=== PATIENT | female | born 1965 | race Caucasian/White ===

== ENCOUNTER → 2017-09-04 | Outpatient (CLI) | payer BC ==
--- NOTE | 2017-09-09 07:14 | MM ---
Reason for exam: screening (asymptomatic). Last mammogram was performed 1 year and 1 month ago. History: Patient is postmenopausal. Family history of breast cancer in maternal grandmother. Took hormonal contraceptives for 20 years beginning at age 23. Taking estrogen for 2 years 7 months. Physical Findings: A clinical breast exam by your physician is recommended on an annual basis and results should be correlated with mammographic findings. MG Screening Mammo w CAD Bilateral CC and MLO view(s) were taken. Prior study comparison: August 07, 2016, bilateral MG screening mammo w CAD. July 19, 2015, bilateral MG screening mammo w CAD. The breast tissue is heterogeneously dense. This may lower the sensitivity of mammography. No significant changes when compared with prior studies. ASSESSMENT: Benign, BI-RAD 2 RECOMMENDATION: Routine screening mammogram of both breasts in 1 year.
== END | disposition home or self-care (01) ==
LOC: RADMAMWWP 16:26
PROVIDERS: ATTEND Obstetrics & Gynecology
DX: Z12.31 Encounter for screening mammogram for malignant neoplasm of breast (principal)

== ENCOUNTER → 2018-09-17 | Outpatient (CLI) | payer BC ==
--- NOTE | 2018-09-18 10:13 | MM ---
Reason for exam: screening (asymptomatic). Last mammogram was performed 1 year ago. History: Patient is postmenopausal. Family history of breast cancer in maternal grandmother. Took hormonal contraceptives for 20 years beginning at age 23. Taking estrogen for 7 years. Physical Findings: A clinical breast exam by your physician is recommended on an annual basis and results should be correlated with mammographic findings. MG Screening Mammo w CAD Bilateral CC and MLO view(s) were taken. Prior study comparison: September 04, 2017, bilateral MG screening mammo w CAD. August 07, 2016, bilateral MG screening mammo w CAD. The breast tissue is heterogeneously dense. This may lower the sensitivity of mammography. There is no discrete abnormality. No significant changes when compared with prior studies. ASSESSMENT: Negative, BI-RAD 1 RECOMMENDATION: Routine screening mammogram of both breasts in 1 year.
== END | disposition home or self-care (01) ==
LOC: RADMAMWWP 16:15
PROVIDERS: ATTEND Obstetrics & Gynecology
DX: Z12.31 Encounter for screening mammogram for malignant neoplasm of breast (principal)
CPT/HCPCS: 77067

== ENCOUNTER → 2019-09-20 | Outpatient (CLI) | payer BC ==
--- NOTE | 2019-09-20 16:00 | BD ---
EXAMINATION TYPE: Axial Bone Density DATE OF EXAM: 09/20/2019 COMPARISON: NONE CLINICAL HISTORY: Z 78.0 Height: 62 Weight: 142.4 FRAX RISK QUESTIONS: Alcohol (3 or more units per day): no Family History (Parent hip fracture): yes - mother Glucocorticoids (More than 3mos): no (Ex: prednisone, prednisolone, methylprednisolone, dexamethasone, and hydrocortisone). History of Fracture in Adulthood: no Secondary Osteoporosis: 1. Type 1 Diabetes: no 2. Hyperthyroidism: no 3. Menopause before 45: no 4. Malnutrition: no 5. Chronic liver disease: no Rheumatoid Arthritis: no Current Tobacco Use: yes RISK FACTORS HISTORY OF: Family History of Osteoporosis: no Active: yes Diet low in dairy products/other sources of calcium: no Postmenopausal woman: age 43 Take estrogen and/or progesterone medications: yes How lon years MEDICATIONS: spironolactone Additional History: EXAM MEASUREMENTS: Bone mineral densitometry was performed using the [employer] System. Bone mineral density as measured about the Lumbar spine is: ----- L1-L4(G/cm2): 1.121 T Score Values are as follows: ----- L2: -0.7 ----- L3: -0.1 ----- L4: -0.6 ----- L1-L4: -0.5 Bone mineral density : baseline Bone mineral density about the R hip (g/cm2): 0.915 Bone mineral density about the L hip (g/cm2): 0.874 T Score values are as follows: -----R Neck: -0.9 -----L Neck: -1.2 -----R Total: -0.7 -----L Total: -0.8 Bone mineral density : baseline IMPRESSION: Osteopenia (T Score between -2.5 and -1). There is slightly increased risk of fracture and the patient may be considered for treatment. Re-Screen 2-5 years. NOTE: T-SCORE=SD OF THE YOUNG ADULT MEAN.
--- NOTE | 2019-09-22 10:17 | MM ---
Reason for exam: screening (asymptomatic). Last mammogram was performed 1 year ago. History: Patient is postmenopausal. Family history of breast cancer in maternal grandmother. Took hormonal contraceptives for 20 years beginning at age 23. Taking estrogen for 7 years. Physical Findings: A clinical breast exam by your physician is recommended on an annual basis and results should be correlated with mammographic findings. MG Screening Mammo w CAD Bilateral CC and MLO view(s) were taken. Prior study comparison: September 17, 2018, bilateral MG screening mammo w CAD. September 04, 2017, bilateral MG screening mammo w CAD. The breast tissue is heterogeneously dense. This may lower the sensitivity of mammography. No significant changes when compared with prior studies. ASSESSMENT: Benign, BI-RAD 2 RECOMMENDATION: Routine screening mammogram of both breasts in 1 year.
== END | disposition home or self-care (01) ==
LOC: RADMAMWWP 15:20
PROVIDERS: ATTEND Obstetrics & Gynecology
DX: Z12.31 Encounter for screening mammogram for malignant neoplasm of breast (principal); Z13.820 Encounter for screening for osteoporosis; M85.80 Other specified disorders of bone density and structure, unspecified site; Z78.0 Asymptomatic menopausal state
CPT/HCPCS: 77067; 77080

== ENCOUNTER 2020-02-24 09:18 | Inpatient (IN) | payer BC ==
[2020-02-24] MEDS ORDERED: HYDROmorphone 0.5 MG/0.5 ML SYRINGE IVP STA ×2 (09:41→11:45)
[2020-02-24] MEDS ORDERED: SODIUM CHLORIDE 0.9% 1,000 ML IV STA (09:41)
[2020-02-24] MEDS ORDERED: ONDANSETRON 4 MG/2 ML VIAL IVP STA (09:41)
--- NOTE | 2020-02-24 09:48 | ED ---
General Adult HPI - General Source: patient, RN notes reviewed Mode of arrival: wheelchair Limitations: no limitations <Hunter Galvan - Last Filed: 02/24/20 11:43> <Michael Cai - Last Filed: 02/24/20 11:51> - General Chief complaint: Abdominal Pain Stated complaint: abd pain Time Seen by Provider: 02/24/20 09:25 - History of Present Illness Initial comments: 54-year-old female with a past medical history of hysterectomy presents to the emergency department for abdominal pain. Patient states this started midday 2 days ago. States it is a sharp pain. Patient states it is across her lower abdomen but a worse in the right lower quadrant. Patient admits to nausea but denies vomiting. Patient did have one episodes of diarrhea but it was because she took a laxative given she thought she was constipated and that was what was causing this pain. Patient denies fevers or chills.Patient has no other complaints at this time including shortness of breath, chest pain, vomiting, headache, or visual changes. (Hunter Galvan) - Related Data Home Medications Medication Instructions Recorded Confirmed Estradiol 0.5 mg PO DAILY 02/24/20 02/24/20 Multivitamins, Thera [Multivitamin 1 tab PO DAILY 02/24/20 02/24/20 (formulary)] Spironolactone 25 mg PO DAILY 02/24/20 02/24/20 Allergies Allergy/AdvReac Type Severity Reaction Status Date / Time No Known Allergies Allergy Verified 02/24/20 10:44 Review of Systems ROS Other: All systems not noted in ROS Statement are negative. <Hunter Galvan - Last Filed: 02/24/20 11:43> ROS Other: All systems not noted in ROS Statement are negative. <Michael Cai - Last Filed: 02/24/20 11:51> ROS Statement: Those systems with pertinent positive or pertinent negative responses have been documented in the HPI. Past Medical History Past Medical History: No Reported History History of Any Multi-Drug Resistant Organisms: None Reported Past Surgical History: Hysterectomy Past Psychological History: No Psychological Hx Reported Smoking Status: Current every day smoker Past Alcohol Use History: Occasional Past Drug Use History: None Reported <Hunter Galvan - Last Filed: 02/24/20 11:43> General Exam Limitations: no limitations General appearance: alert, in no apparent distress Head exam: Present: atraumatic, normocephalic, normal inspection Eye exam: Present: normal appearance, PERRL, EOMI. Absent: scleral icterus, conjunctival injection, periorbital swelling ENT exam: Present: normal exam, mucous membranes moist Neck exam: Present: normal inspection, full ROM. Absent: tenderness, meningismus, lymphadenopathy Respiratory exam: Present: normal lung sounds bilaterally. Absent: respiratory distress, wheezes, rales, rhonchi, stridor Cardiovascular Exam: Present: regular rate, normal rhythm, normal heart sounds. Absent: systolic murmur, diastolic murmur, rubs, gallop, clicks GI/Abdominal exam: Present: soft, distended (Slightly distended abdomen.), tenderness (Tenderness throughout the lower abdomen worse in the right lower quadrant. Nothing no tenderness.), normal bowel sounds. Absent: guarding, rebound, rigid Neurological exam: Present: alert <Hunter Galvan - Last Filed: 02/24/20 11:43> Course Vital Signs 02/24/20 02/24/20 02/24/20 09:19 09:43 11:23 Temperature 97.5 F L 98.7 F Pulse Rate 94 91 88 Respiratory 18 18 17 Rate Blood Pressure 122/77 126/83 126/76 O2 Sat by Pulse 100 100 99 Oximetry Medical Decision Making - Lab Data Result diagrams: 02/24/20 09:53 02/24/20 09:53 <Hunter Galvan P - Last Filed: 02/24/20 11:43> - Lab Data Result diagrams: 02/24/20 09:53 02/24/20 09:53 <Michael Cai - Last Filed: 02/24/20 11:51> - Medical Decision Making Vitals are stable. Patient is afebrile. CBC does show mild cytosis of 13.7 with a left shift. CMP shows mild hyponatremia. Patient given normal saline. Urinalysis pending. CT abdomen and pelvis with contrast shows moderate to severe inflammation with fat stranding in the right lower quadrant. Appendix is thickened and fluid-filled, supple of perforated acute appendicitis is a consideration. However given the appearance of terminal ileitis cystitis and additional short segment of colitis inflammatory enterocolitis with subtle perforation is also in the differential. Unable to exclude a pocket of free air located outside the bowel near the region of the base of the appendix, no other free air seen or abscess. Patient was started on Zosyn and Dr. Park was consulted. (Hunter Galvan) 54-year-old days of right lower quadrant abdominal pain, anorexia. She has focal tenderness on exam with mild distention. Vital signs are stable. She has leukocytosis, CT showing appendicitis with suspected perforation and intra- abdominal free air. I did discuss case with general surgery Dr. Park, patient will be kept nothing by mouth, IV antibiotics initiated in the emergency department, likely OR today. (Michael Cai) - Lab Data Lab Results 02/24/20 02/24/20 02/24/20 Range/Units 09:53 09:53 09:53 WBC 13.7 H (3.8-10.6) k/uL RBC 4.26 (3.80-5.40) m/uL Hgb 14.1 (11.4-16.0) gm/dL Hct 40.5 (34.0-46.0) % MCV 95.2 (80.0-100.0) fL MCH 33.2 (25.0-35.0) pg MCHC 34.9 (31.0-37.0) g/dL RDW 12.2 (11.5-15.5) % Plt Count 304 (150-450) k/uL Neutrophils % 87 % Lymphocytes % 6 % Monocytes % 6 % Eosinophils % 1 % Basophils % 0 % Neutrophils # 11.9 H (1.3-7.7) k/uL Lymphocytes # 0.8 L (1.0-4.8) k/uL Monocytes # 0.8 (0-1.0) k/uL Eosinophils # 0.1 (0-0.7) k/uL Basophils # 0.0 (0-0.2) k/uL Sodium 130 L (137-145) mmol/L Potassium 4.0 (3.5-5.1) mmol/L Chloride 98 (98-107) mmol/L Carbon Dioxide 24 (22-30) mmol/L Anion Gap 8 mmol/L BUN 11 (7-17) mg/dL Creatinine 0.59 (0.52-1.04) mg/dL Est GFR (CKD-EPI)AfAm >90 (>60 ml/min/1.73 sqM) Est GFR (CKD-EPI)NonAf >90 (>60 ml/min/1.73 sqM) Glucose 120 H (74-99) mg/dL Plasma Lactic Acid Chip 1.2 (0.7-2.0) mmol/L Calcium 9.0 (8.4-10.2) mg/dL Total Bilirubin 0.9 (0.2-1.3) mg/dL AST 20 (14-36) U/L ALT 14 (4-34) U/L Alkaline Phosphatase 86 (38-126) U/L Total Protein 7.4 (6.3-8.2) g/dL Albumin 4.1 (3.5-5.0) g/dL Amylase 46 (30-110) U/L Lipase 68 (23-300) U/L Critical Care Time Critical Care Time: Yes Total Critical Care Time: 35 <Michael Cai - Last Filed: 02/24/20 11:51> Disposition Is patient prescribed a controlled substance at d/c from ED?: No Time of Disposition: 11:44 <Hunter Galvan P - Last Filed: 02/24/20 11:43> <Michael Cai - Last Filed: 02/24/20 11:51> Clinical Impression: Appendicitis, Leukocytosis, Abdominal pain, Hyponatremia, Perforated appendicitis Disposition: ADMITTED IP TO THIS HOSP Condition: Fair Referrals: None,Stated [Primary Care Provider] - 1-2 days
[2020-02-24 10:08] LABS: Basophils % (A) 0 %; Eosinophils # (A) 0.1 k/uL (0-0.7); Eosinophils % (A) 1 %; HCT 40.5 % (34.0-46.0); HGB 14.1 gm/dL (11.4-16.0); Lymphocytes # (A) 0.8 k/uL (1.0-4.8); Lymphocytes % (A) 6 %; MCH 33.2 pg (25.0-35.0); MCHC 34.9 g/dL (31.0-37.0); MCV 95.2 fL (80.0-100.0); Mean Platelet Volume 6.7; Monocytes # (A) 0.8 k/uL (0-1.0); Monocytes % (A) 6 %; Neutrophils # (A) 11.9 k/uL (1.3-7.7); Neutrophils % (A) 87 %; Platelet Count 304 k/uL (150-450); RBC 4.26 m/uL (3.80-5.40); RDW 12.2 % (11.5-15.5); WBC 13.7 k/uL (3.8-10.6)
[2020-02-24 10:20] LABS: ALT 14 U/L (4-34); AST 20 U/L (14-36); African American GFR (CKD) >90 (>60 ml/min/1.73 sqM); Albumin 4.1 g/dL (3.5-5.0); Alkaline Phosphatase 86 U/L (38-126); Amylase 46 U/L (30-110); Anion Gap 8 mmol/L; Blood Urea Nitrogen 11 mg/dL (7-17); Carbon Dioxide 24 mmol/L (22-30); Chloride 98 mmol/L (98-107); Glucose 120 mg/dL (74-99); Non-African American GFR(CKD) >90 (>60 ml/min/1.73 sqM); Sodium 130 mmol/L (137-145); Total Bilirubin 0.9 mg/dL (0.2-1.3); Total Protein 7.4 g/dL (6.3-8.2)
[2020-02-24] MEDS ORDERED: KETOROLAC 30 MG/ML 1 ML VIAL IVP STA (10:59)
--- NOTE | 2020-02-24 10:59 | CT ---
EXAMINATION TYPE: CT abdomen pelvis w con DATE OF EXAM: 02/24/2020 COMPARISON: NONE HISTORY: 54-year-old female Abdominal pain, RLQ TECHNIQUE: Contiguous axial scanning of the abdomen and pelvis following administration of 100 ml Iso chin 300 IV contrast. Delayed images through the kidneys and coronal/sagittal reconstructions perform ed. CT DLP: 709.3 mGycm Automated exposure control for dose reduction was used. FINDINGS: Heart normal size without pericardial effusion. Lung bases clear without pleural effusion. Small hiatal hernia. 1.7 cm focus of arterial enhancement anterior segment 4 left lower lobe infiltrates on the delayed ki dney images suggesting flash filling hemangioma or vascular shunting. Small amount of focal fat along the anterior falciform ligament. Portal venous system is patent. No biliary ductal dilatation. 2.7 c m diverticulum of the third portion of the duodenum projecting in the pancreatic head region. Gallbladder, adrenal glands, kidneys, spleen, pancreas appear within normal limits. No dilated small bowel. Left-sided colonic diverticulosis. Wall thickening and mucosal hyperemia involving the terminal ileum, cecum, and ascending colon with m oderate severe surrounding inflammatory fat stranding. Mild to moderate free fluid tracks down along the right side of the pelvis into the cul-de-sac on both sides. Additional short segment mucosal hype remia and wall thickening involving the distal third transverse colon and possibly the rectosigmoid j unction as well, axial images 66 and 74, respectively. The appendix is thickened up to 1.2 cm with fluid distention. Possible 2.4 cm focus of free air at th e base of the appendix. No abscess formation. Prominent 9 mm right lower quadrant mesenteric lymph node likely reactive. Bladder under distended. Pelvic phlebolith. No pelvic lymphadenopathy seen. Uterus surgically absent. Suspect visualization of small bilateral ovaries. Bones: Degenerative disc disease L4-L5 and L5-S1 mild facet arthropathy. Mild degenerative change at both hips. IMPRESSION: 1. MODERATE TO SEVERE INFLAMMATION WITH FAT STRANDING IN THE RIGHT LOWER QUADRANT. [id number] F REE FLUID TRACKS DOWN INTO THE PELVIS. SURGICAL CONSULTATION RECOMMENDED. 2. THE APPENDIX IS THICKENED AND FLUID-FILLED, SEQUELA OF PERFORATED ACUTE APPENDICITIS IS A CONSI DERATION. 3. HOWEVER, GIVEN THE APPEARANCE OF A TERMINAL ILEITIS, CECITIS, AND ADDITIONAL SHORT SEGMENTS OF COL ITIS, AN INFLAMMATORY ENTEROCOLITIS WITH SUBTLE PERFORATION IS ALSO IN THE DIFFERENTIAL. 4. UNABLE TO EXCLUDE A 2.4 CM POCKET OF FREE AIR LOCATED OUTSIDE THE BOWEL NEAR THE REGION OF THE BAS E OF THE APPENDIX. NO OTHER FREE AIR SEEN. NO ABSCESS FORMATION. 5. LEFT-SIDED COLONIC DIVERTICULOSIS AND SMALL HIATAL HERNIA.
[2020-02-24] MEDS ORDERED: PIPERACILLIN-TAZOBACTAM 3.375 GM in SODIUM CHLORIDE 0.9% 100 ML IVPB STA (11:37)
[2020-02-24] MEDS ORDERED: ONDANSETRON 4 MG/2 ML VIAL IVP PRN (11:52)
[2020-02-24] MEDS ORDERED: MORPHINE SULFATE 4 MG/ML SYRINGE IV PRN (11:52)
[2020-02-24] MEDS ORDERED: NALOXONE 0.4 MG/ML 1 ML VIAL IV PRN (11:52)
[2020-02-24] MEDS ORDERED: SODIUM CHLORIDE 0.9% 500 ML 500 ML IV STA (11:54)
[2020-02-24 12:40] LABS: Appearance,Urine Clear (Clear); Bilirubin,Urine Negative (Negative); Blood,Urine Negative (Negative); Color,Urine Yellow; Glucose,Urine (UA) Negative (Negative); Ketones,Urine 4+ (Negative); Leukocyte Esterase,Urine Negative (Negative); Nitrite,Urine Negative (Negative); PH, Urine 6.5 (5.0-8.0); Protein,Urine Trace (Negative); Urobilinogen,Urine <2.0 mg/dL (<2.0)
[2020-02-24] MEDS: SODIUM CHLORIDE 0.9% 1,000 ML IV SCH ×2 (12:59→21:32)
[2020-02-24 13:23] LABS: Specific Gravity,Urine >1.050 (1.001-1.035)
[2020-02-24] MEDS: HYDROmorphone 0.5 MG/0.5 ML SYRINGE IVP PRN ×2 (13:29→21:14)
[2020-02-24] MEDS ORDERED: IV FLUID CONTINUATION 1,000 ML IV ONE (13:48)
--- NOTE | 2020-02-24 15:11 | P.GSHP ---
History of Present Illness H&P Date: 02/24/20 Chief Complaint: Abdominal pain 54-year-old female presents to the ER after 2 days of right lower quadrant abdominal pain. Pain is now more diffuse in nature. Appetite diminished. Some constipation. No vomiting. Some nausea. Denies fevers or chills. No history of similar events. Denies rectal bleeding or melena. Otherwise fairly healthy. Abdominal surgeries include hysterectomy. CAT scan performed showing marked inflammatory changes in the right lower quadrant with fluid and likely extra luminal air. Appendix appears inflamed but sodas the terminal ileum and cecum. Sigmoid colon appears relatively normal the exception of diverticulosis. White blood cell count elevated. - Review of Systems Comment: The patient denies any acute changes in vision or hearing, no dysphagia or odynophagia, no chest pain or shortness of breath, no dysuria or hematuria, no headache, no runny nose, no rectal bleeding or melena, no unexplained weight loss Past Medical History Past Medical History: GERD/Reflux Additional Past Medical History / Comment(s): Adult acne, bronchitis History of Any Multi-Drug Resistant Organisms: None Reported Past Surgical History: Hysterectomy Additional Past Surgical History / Comment(s): Colonoscopy-normal Past Anesthesia/Blood Transfusion Reactions: No Reported Reaction, Motion Sickness Smoking Status: Current every day smoker - Past Family History Father Family Medical History: Dementia, Musculoskeletal Disorder, Neurologic Disorder Additional Family Medical History / Comment(s): Parkinson's disease. Father is . Mother Family Medical History: Dementia Additional Family Medical History / Comment(s): Mother is living. Medications and Allergies Home Medications Medication Instructions Recorded Confirmed Type Estradiol 0.5 mg PO DAILY 02/24/20 02/24/20 History Multivitamins, Thera [Multivitamin 1 tab PO DAILY 02/24/20 02/24/20 History (formulary)] Spironolactone 25 mg PO DAILY 02/24/20 02/24/20 History Allergies Allergy/AdvReac Type Severity Reaction Status Date / Time No Known Allergies Allergy Verified 02/24/20 10:44 Surgical - Exam Vital Signs Temp Pulse Resp BP Pulse Ox 97.5 F L 94 18 122/77 100 02/24/20 09:19 02/24/20 09:19 02/24/20 09:19 02/24/20 09:19 02/24/20 09:19 Physical exam: General: Well-developed, well-nourished HEENT: Normocephalic, sclerae nonicteric Abdomen: Mild distention, diffuse tenderness with rebound Extremities: No edema Neuro: Alert and oriented Results - Labs 02/24/20 09:53 02/24/20 09:53 Abnormal Lab Results - Last 24 Hours (Table) 02/24/20 02/24/20 02/24/20 Range/Units 09:53 09:53 12:15 WBC 13.7 H (3.8-10.6) k/uL Neutrophils # 11.9 H (1.3-7.7) k/uL Lymphocytes # 0.8 L (1.0-4.8) k/uL Sodium 130 L (137-145) mmol/L Glucose 120 H (74-99) mg/dL Ur Specific Mize >1.050 H (1.001-1.035) Urine Protein Trace H (Negative) Urine Ketones 4+ H (Negative) Diabetes panel 02/24/20 Range/Units 09:53 Sodium 130 L (137-145) mmol/L Potassium 4.0 (3.5-5.1) mmol/L Chloride 98 (98-107) mmol/L Carbon Dioxide 24 (22-30) mmol/L BUN 11 (7-17) mg/dL Creatinine 0.59 (0.52-1.04) mg/dL Glucose 120 H (74-99) mg/dL Calcium 9.0 (8.4-10.2) mg/dL AST 20 (14-36) U/L ALT 14 (4-34) U/L Alkaline Phosphatase 86 (38-126) U/L Total Protein 7.4 (6.3-8.2) g/dL Albumin 4.1 (3.5-5.0) g/dL Calcium panel 02/24/20 Range/Units 09:53 Calcium 9.0 (8.4-10.2) mg/dL Albumin 4.1 (3.5-5.0) g/dL Pituitary panel 02/24/20 Range/Units 09:53 Sodium 130 L (137-145) mmol/L Potassium 4.0 (3.5-5.1) mmol/L Chloride 98 (98-107) mmol/L Carbon Dioxide 24 (22-30) mmol/L BUN 11 (7-17) mg/dL Creatinine 0.59 (0.52-1.04) mg/dL Glucose 120 H (74-99) mg/dL Calcium 9.0 (8.4-10.2) mg/dL Adrenal panel 02/24/20 Range/Units 09:53 Sodium 130 L (137-145) mmol/L Potassium 4.0 (3.5-5.1) mmol/L Chloride 98 (98-107) mmol/L Carbon Dioxide 24 (22-30) mmol/L BUN 11 (7-17) mg/dL Creatinine 0.59 (0.52-1.04) mg/dL Glucose 120 H (74-99) mg/dL Calcium 9.0 (8.4-10.2) mg/dL Total Bilirubin 0.9 (0.2-1.3) mg/dL AST 20 (14-36) U/L ALT 14 (4-34) U/L Alkaline Phosphatase 86 (38-126) U/L Total Protein 7.4 (6.3-8.2) g/dL Albumin 4.1 (3.5-5.0) g/dL Assessment and Plan (1) Perforated appendicitis Narrative/Plan: 54 row female with 2 day history of abdominal pain. Suspect perforated appendicitis. Will proceed with laparoscopic, possible open appendectomy at this time. Risks of bleeding, infection, conversion to an open procedure, abscess, bladder bowel and ureteral injury, possible need for bowel resection and/or ostomy, wound infection, hernia. Patient understands and wishes to proceed. Current Visit: Yes Status: Acute Code(s): K35.32 - ACUTE APPENDICITIS WITH PERF AND LOC PERITONITIS, W/O ABSCS SNOMED Code(s): 49797895
[2020-02-24] MEDS ORDERED: KETOROLAC 30 MG/ML 1 ML VIAL ONE (15:18)
[2020-02-24] MEDS ORDERED: fentaNYL (PF) 50 MCG/ML 2 ML AMP ONE (15:18)
[2020-02-24] MEDS ORDERED: MIDAZOLAM 2 MG/2 ML VIAL ONE (15:18)
[2020-02-24] MEDS ORDERED: GLYCOPYRROLATE 0.2 MG/ML 2 ML VIAL ONE (15:18)
[2020-02-24] MEDS ORDERED: ROCURONIUM BROMIDE 10 MG/ML 5 ML VIAL IV ONE (15:18)
[2020-02-24] MEDS ORDERED: SUCCINYLCHOLINE CHLORIDE 100 MG/5 ML SYR IV ONE (15:18)
[2020-02-24] MEDS ORDERED: NEOSTIGMINE 1 MG/ML 10 ML VIAL ONE (15:18)
[2020-02-24] MEDS ORDERED: PROPOFOL 10 MG/ML 20 ML VIAL IV ONE (15:18)
[2020-02-24] MEDS ORDERED: ONDANSETRON 4 MG/2 ML VIAL IVP ONE (15:20)
[2020-02-24] MEDS ORDERED: DEXAMETHASONE SOD PHOSPHATE 10 MG/ML 1 ML VIAL IV ONE (15:20)
[2020-02-24] MEDS ORDERED: BUPIVACAIN-EPI 0.25%-1:200,000 30 ML VIAL SQ ONE ×2 (15:56)
[2020-02-24] MEDS ORDERED: LACTATED RINGERS 1,000 ML IV ONE (16:42)
[2020-02-24] MEDS ORDERED: ACETAMINOPHEN TAB 325 MG TAB PO PRN (16:58)
[2020-02-24] MEDS ORDERED: HYDROmorphone 1 MG/ML 1 ML SYRINGE IVP ONE ×2 (17:03→17:08)
--- NOTE | 2020-02-24 17:08 | P.OP ---
Date of Procedure: 02/24/20 Procedure(s) Performed: PREOPERATIVE DIAGNOSIS: Acute appendicitis POSTOPERATIVE DIAGNOSIS: Ruptured gangrenous appendicitis with peritonitis generalized PROCEDURE: Laparoscopic appendectomy SURGEON: Vivian EBL: And keri ANESTHESIA: General COMPLICATIONS: None OPERATIVE PROCEDURE: The patient was brought and placed on the operating table in the supine position. The patient was placed under general anesthesia. The abdomen was prepped and draped in the usual sterile fashion. A small vertical infraumbilical incision was made. The fascia was retracted anteriorly with [place] forceps. The Veress needle was advanced into the peritoneal cavity. The saline drop test was normal. Insufflation took place to 15 mmHg. A 5 mm trocar was then placed. An additional 5 mm suprapubic trocar was placed under direct visualization as well as a 12 mm left lower quadrant trocar under direct visualization. The patient had loose adhesions in the pelvis between the omentum, small bowel, and the purulent fluid collections present. These were bluntly dissected. The purulence was evacuated. 2 appendicoliths were identified and removed. The appendix was gangrenous with a large rupture proximally. There were some adhesions between the cecum and ascending colon and the anterior abdominal wall that were chronic in nature. These were lysed using sharp dissection and cautery. The base of the appendix was then dissected. In order to achieve adequate viability a small portion of the base of the cecum was included with our staple line. 2 separate firings of the blue load endoscopic stapler were utilized. The mesoappendix was divided using the LigaSure device. No bleeding was seen. Further irrigation of the peritoneal cavity took place. No further purulence was seen. A drain was placed in the pelvis extending up the right gutter. This was brought out through the suprapubic trocar and sutured to the skin using a 3-0 silk suture. The appendix was removed using an Endo Catch bag. The 12 Debbie trocar fascia was closed using a Taiwo-Juan M [id number] 0 Vicryl stitch. The skin at both sites was closed using 4-0 Monocryl sutures. Skin glue was then applied. DISPOSITION: Stable to recovery room
[2020-02-24] MEDS: metroNIDAZOLE-NS PMX 500 MG in SALINE 1 100ML.BAG IVPB SCH (18:16)
[2020-02-24] MEDS: D5-0.45% NACL WITH KCL 20MEQ/L 1,000 ML IV SCH (21:14)
[2020-02-24] MEDS: PIPERACILLIN-TAZOBACTAM 3.375 GM in SODIUM CHLORIDE 0.9% 100 ML IVPB SCH (21:32)
[2020-02-25] MEDS: HEPARIN SODIUM,PORCINE 5,000 UNIT/ML 1 ML VIAL SQ SCH ×3 (00:22→16:56)
[2020-02-25] MEDS: HYDROmorphone 0.5 MG/0.5 ML SYRINGE IVP PRN ×2 (00:25→05:59)
[2020-02-25] MEDS: metroNIDAZOLE-NS PMX 500 MG in SALINE 1 100ML.BAG IVPB SCH ×4 (00:29→16:57)
[2020-02-25] MEDS ORDERED: SODIUM CHLORIDE 0.9% 500 ML 500 ML IV ONE ×2 (01:03→14:30)
[2020-02-25] MEDS: D5-0.45% NACL WITH KCL 20MEQ/L 1,000 ML IV SCH ×4 (01:57→21:42)
[2020-02-25 03:33] LABS: Basophils % (A) 0 %; Eosinophils % (A) 0 %; HCT 34.2 % (34.0-46.0); HGB 11.2 gm/dL (11.4-16.0); Lymphocytes # (A) 0.5 k/uL (1.0-4.8); Lymphocytes % (A) 6 %; MCH 31.7 pg (25.0-35.0); MCHC 32.8 g/dL (31.0-37.0); MCV 96.5 fL (80.0-100.0); Mean Platelet Volume 7.5; Monocytes # (A) 0.5 k/uL (0-1.0); Monocytes % (A) 6 %; Neutrophils # (A) 7.5 k/uL (1.3-7.7); Neutrophils % (A) 87 %; Platelet Count 225 k/uL (150-450); RBC 3.54 m/uL (3.80-5.40); RDW 12.5 % (11.5-15.5); WBC 8.6 k/uL (3.8-10.6)
[2020-02-25] MEDS: SODIUM CHLORIDE 0.9% 1,000 ML IV SCH ×3 (04:52→18:48)
[2020-02-25] MEDS: PIPERACILLIN-TAZOBACTAM 3.375 GM in SODIUM CHLORIDE 0.9% 100 ML IVPB SCH ×3 (05:59→21:45)
[2020-02-25 08:13] LABS: Basophils % (A) 0 %; Eosinophils % (A) 0 %; HCT 32.6 % (34.0-46.0); HGB 10.4 gm/dL (11.4-16.0); Lymphocytes # (A) 0.5 k/uL (1.0-4.8); Lymphocytes % (A) 7 %; MCH 31.2 pg (25.0-35.0); MCHC 31.9 g/dL (31.0-37.0); Mean Platelet Volume 7.6; Monocytes # (A) 0.4 k/uL (0-1.0); Monocytes % (A) 5 %; Neutrophils # (A) 7.2 k/uL (1.3-7.7); Neutrophils % (A) 87 %; Platelet Count 229 k/uL (150-450); RBC 3.33 m/uL (3.80-5.40); RDW 12.4 % (11.5-15.5); WBC 8.3 k/uL (3.8-10.6)
[2020-02-25 08:27] LABS: African American GFR (CKD) >90 (>60 ml/min/1.73 sqM); Anion Gap 5 mmol/L; Blood Urea Nitrogen 9 mg/dL (7-17); Calcium 7.2 mg/dL (8.4-10.2); Carbon Dioxide 19 mmol/L (22-30); Chloride 105 mmol/L (98-107); Glucose 140 mg/dL (74-99); Non-African American GFR(CKD) >90 (>60 ml/min/1.73 sqM); Potassium 4.4 mmol/L (3.5-5.1); Sodium 129 mmol/L (137-145)
[2020-02-25] MEDS: HYDROcodone/APAP 5-325MG 1 EACH TAB PO PRN ×3 (08:49→21:41)
[2020-02-25] MEDS: PANTOPRAZOLE 40 MG/10 ML VIAL IV SCH (08:50)
--- NOTE | 2020-02-25 09:57 | P.PN ---
<Karina Anthony Remy - Last Filed: 02/25/20 09:52> Subjective Progress Note Date: 02/25/20 CHIEF COMPLAINT: Abdominal pain HISTORY OF PRESENT ILLNESS: 54-year-old female who is status post laparoscopic appendectomy secondary to ruptured gangrenous appendicitis with generalized lilly tonitis. Postop day #1. Patient examined at the bedside. Patient currently rates her pain 10/10. RN in room with pain medications during my examination. She is tolerating clear liquid diet. She denies nausea or vomiting. She denies passing flatus. KEN drain with cloudy serosanguineous drainage. WBC 8.3. Patient is afebrile. PHYSICAL EXAM: VITAL SIGNS: Reviewed. GENERAL: Well-developed in no acute distress. HEENT: No sclera icterus. Extraocular movements grossly intact. Moist buccal mucosa. Head is atraumatic, normocephalic. ABDOMEN: Soft. Nondistended. Appropriate surgical tenderness. Lower abdominal dressing clean dry and intact. KEN drain with cloudy serosanguineous drainage NEUROLOGIC: Alert and oriented. Cranial nerves II through XII grossly intact. ASSESSMENT: 1. Abdominal pain 2. Ruptured gangrenous appendicitis with generalized peritonitis PLAN: -Continue clear liquid diet -Continue IV antibiotics -Pain control. Continue Cache and Dilaudid. Add Toradol PRN -Monitor KEN drain output -Activity as tolerated -Incentive spirometer Nurse practitioner note has been reviewed by physician. Signing provider agrees with the documented findings, assessment, and plan of care. Objective - Vital Signs Vital signs: Vital Signs Temp 98.3 F 02/25/20 07:33 Pulse 88 02/25/20 07:33 Resp 16 02/25/20 07:33 BP 96/65 02/25/20 07:33 Pulse Ox 97 02/25/20 07:33 Intake & Output 02/24/20 02/25/20 02/25/20 18:59 06:59 18:59 Intake Total 1125 Output Total 65 1755 80 Balance 1060 -1755 -80 Weight 65.317 kg Intake: IV 1125 Output: Drainage 55 80 Abdomen 55 80 Urine 1700 Straight 800 Estimated Blood Loss 65 Other: Voiding Method Toilet - Labs CBC & Chem 7: 02/25/20 07:21 02/25/20 07:21 Labs: Abnormal Lab Results - Last 24 Hours (Table) 02/24/20 02/24/20 02/24/20 Range/Units 09:53 09:53 12:15 WBC 13.7 H (3.8-10.6) k/uL RBC (3.80-5.40) m/uL Hgb (11.4-16.0) gm/dL Hct (34.0-46.0) % Neutrophils # 11.9 H (1.3-7.7) k/uL Lymphocytes # 0.8 L (1.0-4.8) k/uL Sodium 130 L (137-145) mmol/L Carbon Dioxide (22-30) mmol/L Glucose 120 H (74-99) mg/dL Calcium (8.4-10.2) mg/dL Ur Specific [place] >1.050 H (1.001-1.035) Urine Protein Trace H (Negative) Urine Ketones 4+ H (Negative) 02/25/20 02/25/20 02/25/20 Range/Units 02:32 07:21 07:21 WBC (3.8-10.6) k/uL RBC 3.54 L 3.33 L (3.80-5.40) m/uL Hgb 11.2 L 10.4 L (11.4-16.0) gm/dL Hct 32.6 L (34.0-46.0) % Neutrophils # (1.3-7.7) k/uL Lymphocytes # 0.5 L 0.5 L (1.0-4.8) k/uL Sodium 129 L (137-145) mmol/L Carbon Dioxide 19 L (22-30) mmol/L Glucose 140 H (74-99) mg/dL Calcium 7.2 L (8.4-10.2) mg/dL Ur Specific [place] (1.001-1.035) Urine Protein (Negative) Urine Ketones (Negative) <Adalberto Park - Last Filed: 02/25/20 18:24> Subjective As above. Patient complaining of pain left midabdomen and trocar entrance site. States the rest of her abdomen feels better than preop. Labs noted. Low-grade fever. Tolerating clears. Will increase diet. Keep KEN drain in place. Continue broad-spectrum antibiotics. Possible discharge tomorrow or Friday. Prescriptions sent for antibiotics and Cache. Increase ambulation. Objective - Vital Signs Vital signs: Vital Signs Temp 98.1 F 02/25/20 14:04 Pulse 78 02/25/20 14:04 Resp 16 02/25/20 14:04 BP 96/60 02/25/20 17:05 Pulse Ox 93 L 02/25/20 14:04 Intake & Output 02/24/20 02/25/20 02/25/20 18:59 06:59 18:59 Intake Total 1125 Output Total 65 1755 1080 Balance 1060 -0189 -1080 Weight 65.317 kg Intake: IV 1125 Output: Drainage 55 180 Abdomen 55 180 Urine 1700 650 Straight 800 400 Post Void Residual 250 Estimated Blood Loss 65 Other: Voiding Method Toilet Toilet - Labs CBC & Chem 7: 02/25/20 07:21 02/25/20 07:21 Labs: Abnormal Lab Results - Last 24 Hours (Table) 02/25/20 02/25/20 02/25/20 Range/Units 02:32 07:21 07:21 RBC 3.54 L 3.33 L (3.80-5.40) m/uL Hgb 11.2 L 10.4 L (11.4-16.0) gm/dL Hct 32.6 L (34.0-46.0) % Lymphocytes # 0.5 L 0.5 L (1.0-4.8) k/uL Sodium 129 L (137-145) mmol/L Carbon Dioxide 19 L (22-30) mmol/L Glucose 140 H (74-99) mg/dL Calcium 7.2 L (8.4-10.2) mg/dL Microbiology - Last 24 Hours (Table) 02/24/20 12:28 Blood Culture - Preliminary Blood No Growth after 24 hours Assessment and Plan (1) Perforated appendicitis Current Visit: Yes Status: Acute Code(s): K35.32 - ACUTE APPENDICITIS WITH PERF AND LOC PERITONITIS, W/O ABSCS SNOMED Code(s): 12268941
[2020-02-25] MEDS: KETOROLAC 30 MG/ML 1 ML VIAL IVP PRN (10:43)
[2020-02-25] MEDS: TAMSULOSIN 0.4 MG CAP.ER.24H PO SCH (12:24)
[2020-02-25] MEDS: HYDROmorphone 1 MG/ML 1 ML SYRINGE IVP PRN (12:43)
[2020-02-26] MEDS: HEPARIN SODIUM,PORCINE 5,000 UNIT/ML 1 ML VIAL SQ SCH ×4 (02:06→23:23)
[2020-02-26] MEDS: metroNIDAZOLE-NS PMX 500 MG in SALINE 1 100ML.BAG IVPB SCH ×2 (02:07→08:21)
[2020-02-26] MEDS: HYDROmorphone 1 MG/ML 1 ML SYRINGE IVP PRN ×3 (02:07→13:02)
[2020-02-26] MEDS: PIPERACILLIN-TAZOBACTAM 3.375 GM in SODIUM CHLORIDE 0.9% 100 ML IVPB SCH ×3 (05:19→21:30)
[2020-02-26] MEDS: HYDROcodone/APAP 5-325MG 1 EACH TAB PO PRN ×3 (05:19→21:38)
[2020-02-26] MEDS: SODIUM CHLORIDE 0.9% 1,000 ML IV SCH ×2 (05:25→16:25)
[2020-02-26 07:52] LABS: Basophils % (A) 0 %; Eosinophils % (A) 0 %; HCT 30.6 % (34.0-46.0); HGB 10.4 gm/dL (11.4-16.0); Lymphocytes # (A) 0.7 k/uL (1.0-4.8); Lymphocytes % (A) 9 %; MCH 32.8 pg (25.0-35.0); MCHC 34.1 g/dL (31.0-37.0); MCV 96.3 fL (80.0-100.0); Monocytes # (A) 0.3 k/uL (0-1.0); Monocytes % (A) 4 %; Neutrophils # (A) 7.4 k/uL (1.3-7.7); Neutrophils % (A) 87 %; Platelet Count 258 k/uL (150-450); RBC 3.18 m/uL (3.80-5.40); RDW 12.2 % (11.5-15.5); WBC 8.5 k/uL (3.8-10.6)
[2020-02-26 08:08] LABS: African American GFR (CKD) >90 (>60 ml/min/1.73 sqM); Anion Gap 2 mmol/L; Blood Urea Nitrogen 4 mg/dL (7-17); Calcium 7.6 mg/dL (8.4-10.2); Carbon Dioxide 23 mmol/L (22-30); Chloride 106 mmol/L (98-107); Glucose 96 mg/dL (74-99); Non-African American GFR(CKD) >90 (>60 ml/min/1.73 sqM); Potassium 3.8 mmol/L (3.5-5.1); Sodium 131 mmol/L (137-145)
[2020-02-26] MEDS: PANTOPRAZOLE 40 MG/10 ML VIAL IV SCH (08:19)
[2020-02-26] MEDS: TAMSULOSIN 0.4 MG CAP.ER.24H PO SCH (08:19)
--- NOTE | 2020-02-26 14:29 | P.PN ---
Subjective Progress Note Date: 02/26/20 CHIEF COMPLAINT: Ruptured appendicitis HISTORY OF PRESENT ILLNESS: The patient is a 54 year-old female status post appendectomy for ruptured appendicitis with peritonitis. 02/24/2020. She is postoperative day 2. She reports moderate improvement of her pain. She did have acute right lower quadrant spasm that improved after IV pain medication. She is on full liquid diet. ROS: No reports of nausea and vomiting. No fevers or chills. No new chest pain. No productive sputum PHYSICAL EXAM: VITAL SIGNS: Reviewed CONSTITUTIONAL: Well developed and in no acute distress. EYES: Conjuctivae without sclera icterus. Extraocular movements grossly intact. HEAD, EARS, NOSE, THROAT: Moist buccal mucosa. Head is atraumatic, normocephalic. Hears conversational speech. No nasal drainage. NECK: Supple. No thyroidomegaly. RESPIRATORY: Non-labored respirations and equal bilateral excursions. CARDIOVASCULAR: Palpable 2+ radial pulses. ABDOMEN: Soft. No peritonitis. KEN serosanguineous MUSCULOSKELETAL: No gross deformity of the lower extremities noted. No clubbing. No cyanosis. SKIN: Good skin turgor. Well perfused. NEUROLOGIC: Cranial nerves II through XII grossly intact. No focal or l ateralizing signs. PSYCH: Appropriate affect. Alert and oriented to person, place and time. CLINICAL LABS: [place] blood [place] [address] to 8500 ASSESSMENT: 1. Ruptured appendicitis with peritonitis PLAN: 1. Continue IV antibiotics 2. Will advance diet to a low fiber. 3. Possible discharge in 24-48 hours Objective - Vital Signs Vital signs: Vital Signs Temp 99.3 F 02/26/20 07:00 Pulse 105 H 02/26/20 07:00 Resp 16 02/26/20 07:00 BP 110/64 02/26/20 07:00 Pulse Ox 92 L 02/26/20 07:00 Intake & Output 02/25/20 02/26/20 02/26/20 18:59 06:59 18:59 Intake Total 400 Output Total 9641 9473 730 Balance -2731 -8147 -730 Intake: Oral 400 Output: Drainage 180 80 30 Abdomen 180 80 30 Urine 650 1800 700 Straight 400 Post Void Residual 250 Other: Voiding Method Toilet Toilet # Voids 1 - Labs CBC & Chem 7: 02/26/20 07:19 02/26/20 07:19 Labs: Abnormal Lab Results - Last 24 Hours (Table) 02/26/20 02/26/20 Range/Units 07:19 07:19 RBC 3.18 L (3.80-5.40) m/uL Hgb 10.4 L (11.4-16.0) gm/dL Hct 30.6 L (34.0-46.0) % Lymphocytes # 0.7 L (1.0-4.8) k/uL Sodium 131 L (137-145) mmol/L BUN 4 L (7-17) mg/dL Calcium 7.6 L (8.4-10.2) mg/dL Microbiology - Last 24 Hours (Table) 02/24/20 12:28 Blood Culture - Preliminary Blood No Growth after 24 hours Assessment and Plan (1) Hyponatremia Current Visit: Yes Status: Acute Code(s): E87.1 - HYPO-OSMOLALITY AND HYPONATREMIA SNOMED Code(s): 26798124 (2) Leukocytosis Current Visit: Yes Status: Acute Code(s): D72.829 - ELEVATED WHITE BLOOD CELL COUNT, UNSPECIFIED SNOMED Code(s): 225443391 (3) Perforated appendicitis Current Visit: Yes Status: Acute Code(s): K35.32 - ACUTE APPENDICITIS WITH PERF AND LOC PERITONITIS, W/O ABSCS SNOMED Code(s): 71004822
[2020-02-26] MEDS: KETOROLAC 30 MG/ML 1 ML VIAL IVP PRN (16:00)
[2020-02-26] MEDS: metroNIDAZOLE 500 MG TAB PO SCH ×2 (17:04→23:23)
[2020-02-26] MEDS: D5-0.45% NACL WITH KCL 20MEQ/L 1,000 ML IV SCH (21:30)
[2020-02-27] MEDS: SODIUM CHLORIDE 0.9% 1,000 ML IV SCH ×2 (05:55→06:04)
[2020-02-27] MEDS: D5-0.45% NACL WITH KCL 20MEQ/L 1,000 ML IV SCH ×2 (05:55→06:04)
[2020-02-27] MEDS: PIPERACILLIN-TAZOBACTAM 3.375 GM in SODIUM CHLORIDE 0.9% 100 ML IVPB SCH ×2 (05:55→13:51)
[2020-02-27] MEDS: HYDROcodone/APAP 5-325MG 1 EACH TAB PO PRN ×3 (06:02→17:31)
[2020-02-27] MEDS: TAMSULOSIN 0.4 MG CAP.ER.24H PO SCH (08:05)
[2020-02-27] MEDS: metroNIDAZOLE 500 MG TAB PO SCH (08:06)
[2020-02-27] MEDS: HEPARIN SODIUM,PORCINE 5,000 UNIT/ML 1 ML VIAL SQ SCH (08:06)
[2020-02-27] MEDS ORDERED: PANTOPRAZOLE 40 MG TABLET PO SCH (09:00)
[2020-02-27 16:44] VITALS: BP 130/83; PULSE 91; RESP 17; TEMP 98.5
--- NOTE | 2020-02-27 16:49 | P.PN ---
Subjective Progress Note Date: 02/27/20 CHIEF COMPLAINT: Ruptured appendicitis HISTORY OF PRESENT ILLNESS: The patient is a 54 year-old female status post appendectomy for ruptured appendicitis with peritonitis. 02/24/2020. She is postoperative day 3. She feels great. "I want to go home.". No fevers or chills in 24 hours. ROS: No reports of nausea and vomiting. No fevers or chills. No new chest pain. No productive sputum PHYSICAL EXAM: VITAL SIGNS: Reviewed CONSTITUTIONAL: Well developed and in no acute distress. EYES: Conjuctivae without sclera icterus. Extraocular movements grossly intact. HEAD, EARS, NOSE, THROAT: Moist buccal mucosa. Head is atraumatic, normocephalic. Hears conversational speech. No nasal drainage. NECK: Supple. No thyroidomegaly. RESPIRATORY: Non-labored respirations and equal bilateral excursions. CARDIOVASCULAR: Palpable 2+ radial pulses. ABDOMEN: Soft. Incision clean dry and intact. KEN serosanguineous MUSCULOSKELETAL: No gross deformity of the lower extremities noted. No clubbing. No cyanosis. SKIN: Good skin turgor. Well perfused. NEUROLOGIC: Cranial nerves II through XII grossly intact. No focal or lateralizing signs. PSYCH: Appropriate affect. Alert and oriented to person, place and time. CLINICAL LABS: [place] 14977 to 8500, no new labs t rafael. ASSESSMENT: 1. Ruptured appendicitis with peritonitis PLAN: 1. Benefits and risks of discharge reviewed including continued KEN drains. 2. Patient agreeable for discharge. Objective - Vital Signs Vital signs: Vital Signs Temp 98.5 F 02/27/20 15:00 Pulse 91 02/27/20 15:00 Resp 17 02/27/20 15:00 BP 130/83 02/27/20 15:00 Pulse Ox 95 02/27/20 15:00 Intake & Output 02/26/20 02/27/20 02/27/20 18:59 06:59 18:59 Intake Total 975 300 100 Output Total 760 1400 Balance 215 -1100 100 Intake: Intake, IV Titration 975 100 Amount D5-0.45% NaCl with KCl 875 20Meq/l 1,000 ml @ 125 mls/hr IV .Q8H [facility] Rx#: [id number] Piperacillin-Tazobactam 3 100 100 .375 gm In Sodium Chloride 0.9% 100 ml @ 25 mls/hr IVPB Q8H [facility] Rx#: [id number] Oral 300 Output: Drainage 60 Abdomen 60 Urine 700 1400 Other: Voiding Method Toilet Toilet # Voids 1 - Labs CBC & Chem 7: 02/26/20 07:19 02/26/20 07:19 Labs: Microbiology - Last 24 Hours (Table) 02/24/20 12:28 Blood Culture - Preliminary Blood No Growth after 72 hours Assessment and Plan (1) Hyponatremia Current Visit: Yes Status: Acute Code(s): E87.1 - HYPO-OSMOLALITY AND HYPONATREMIA SNOMED Code(s): 99352740 (2) Leukocytosis Current Visit: Yes Status: Acute Code(s): D72.829 - ELEVATED WHITE BLOOD CELL COUNT, UNSPECIFIED SNOMED Code(s): 490681055 (3) Perforated appendicitis Current Visit: Yes Status: Acute Code(s): K35.32 - ACUTE APPENDICITIS WITH PERF AND LOC PERITONITIS, W/O ABSCS SNOMED Code(s): 29467787
--- NOTE | 2020-02-27 16:50 | P.DS ---
Providers Date of admission: 02/24/20 11:52 Expected date of discharge: 02/27/20 Attending physician: Adalberto Park Primary care physician: Stated None - Discharge Diagnosis(es) (1) Hyponatremia Current Visit: Yes Status: Acute (2) Leukocytosis Current Visit: Yes Status: Acute (3) Perforated appendicitis Current Visit: Yes Status: Acute Hospital Course: CHIEF COMPLAINT: Ruptured appendicitis HISTORY OF PRESENT ILLNESS: The patient is a 54 year-old female status post appendectomy for ruptured appendicitis with peritonitis. 02/24/2020. She is postoperative day 2. She reports moderate improvement of her pain. She did have acute right lower quadrant spasm that improved after IV pain medication. She is on full liquid diet. ROS: No reports of nausea and vomiting. No fevers or chills. No new chest pain. No productive sputum PHYSICAL EXAM: VITAL SIGNS: Reviewed CONSTITUTIONAL: Well developed and in no acute distress. EYES: Conjuctivae without sclera icterus. Extraocular movements grossly intact. HEAD, EARS, NOSE, THROAT: Moist buccal mucosa. Head is atraumatic, normocephalic. Hears conversational speech. No nasal drainage. NECK: Supple. No thyroidomegaly. RESPIRATORY: Non-labored respirations and equal bilateral excursions. CARDIOVASCULAR: Palpable 2+ radial pulses. ABDOMEN: Soft. No peritonitis. KEN serosanguineous MUSCULOSKELETAL: No gross deformity of the lower extremities noted. No clubbing. No cyanosis. SKIN: Good skin turgor. Well perfused. NEUROLOGIC: Cranial nerves II through XII grossly intact. No focal or lateralizing signs. PSYCH: Appropriate affect. Alert and oriented to person, place and time. CLINICAL LABS: [place] [address] to 8500 ASSESSMENT: 1. Ruptured appendicitis with peritonitis PLAN: 1. Continue IV antibiotics 2. Will advance diet to a low fiber. 3. Possible discharge in 24-48 hours Patient Condition at Discharge: Stable Plan - Discharge Summary Discharge Rx Participant: Yes New Discharge Prescriptions: New Amoxicillin/Potassium Clav [Augmentin 875-125 Tablet] 1 tab PO BID 5 Days #10 tab Hydrocodone/Acetaminophen [Rio 5-325] 1 tab PO Q6HR PRN 3 Days #12 tab PRN Reason: Pain Continue Spironolactone 25 mg PO DAILY Multivitamins, Thera [Multivitamin (formulary)] 1 tab PO DAILY Estradiol 0.5 mg PO DAILY Discharge Medication List Estradiol 0.5 mg PO DAILY 02/24/20 [History] Multivitamins, Thera [Multivitamin (formulary)] 1 tab PO DAILY 02/24/20 [History] Spironolactone 25 mg PO DAILY 02/24/20 [History] Amoxicillin/Potassium Clav [Augmentin 875-125 Tablet] 1 tab PO BID 5 Days #10 tab 02/25/20 [Rx] Hydrocodone/Acetaminophen [Rio 5-325] 1 tab PO Q6HR PRN 3 Days #12 tab 02/25/20 [Rx] Follow up Appointment(s)/Referral(s): Adalberto Park MD [Medical Doctor] - 1 Week None,Stated [Primary Care Provider] - 1-2 days Patient Instructions/Handouts: Appendicitis (GEN), Andrew-Evangelista Drain Care (DC), Laparoscopic Appendectomy (DC) Activity/Diet/Wound Care/Special Instructions: Please record KEN outputs. No lifting over 10 pounds for 2 weeks. May sponge bath. Keep KEN site dry for showering. Ambulate frequently during the day to prevent blood clots. Discharge Disposition: HOME SELF-CARE
== END 2020-02-27 17:54 | disposition home or self-care (01) | DRG 342 ==
LOC: EC 09:18 → 4SSUR 11:52
PROVIDERS: ADMIT Surgery; ATTEND Surgery
PROC: 0DTJ4ZZ Resection of Appendix, Percutaneous Endoscopic Approach (ICD-10-PCS; principal; 2020-02-24 12:02)
DX: K35.20 Acute appendicitis with generalized peritonitis, without abscess (principal); E87.1 Hypo-osmolality and hyponatremia; F17.200 Nicotine dependence, unspecified, uncomplicated; K21.9 Gastro-esophageal reflux disease without esophagitis; K59.00 Constipation, unspecified; K57.30 Diverticulosis of large intestine without perforation or abscess without bleeding; Z79.899 Other long term (current) drug therapy; Z90.710 Acquired absence of both cervix and uterus; Z82.0 Family history of epilepsy and other diseases of the nervous system; Z98.890 Other specified postprocedural states; Z11.59 Encounter for screening for other viral diseases
CPT/HCPCS: 36415; 74177; 80048; 80053; 81003; 82150; 83605; 83690; 85025; 87040; 88304; 96361; 96365; 96375; 99291

== ENCOUNTER → 2020-03-23 | Outpatient (CLI) | payer BC ==
--- NOTE | 2020-03-23 12:51 | CT ---
EXAMINATION TYPE: CT abdomen pelvis w con DATE OF EXAM: 03/23/2020 COMPARISON: 02/24/2020 HISTORY: RLQ pain post appendectomy CT DLP: 422.6 mGycm CONTRAST: CT scan of the abdomen and pelvis is performed with Oral Contrast and with IV Contrast, patient injec nafisa with 100 mL of Isovue 300. FINDINGS: LUNG BASES-: No visible nodule. No infiltrate. LIVER/GB: No calcified gallstones. Hyperdense lesion anterior liver at its periphery is unchanged m easuring 1.7 cm and is felt to reflect hemangioma. Biliary tree is of normal caliber. PANCREAS: No inflammation. No distinct mass. SPLEEN: No splenic enlargement. No lesion seen. ADRENALS: No nodule. No thickening. KIDNEYS/BLADDER: No hydronephrosis. No nephrolithiasis. No distinct renal mass. Urinary bladder g rossly unremarkable. BOWEL: Post appendectomy changes are identified. Previously noted abscesses have resolved in the inte rval. No evidence for bowel wall thickening. No evidence for free air. Sigmoid diverticulosis without diverticulitis. GENITAL ORGANS: No gross abnormality. LYMPH NODES: No greater than 1cm abdominal or pelvic lymph nodes are appreciated. AORTA: No significant abnormality. OSSEOUS STRUCTURES: No significant abnormality is seen. OTHER: No significant additional abnormality is seen. IMPRESSION: 1. Markedly improved appearance of the abdomen with resolution of previously noted fluid collections and abscesses as well as resolution of bowel wall thickening. Post appendectomy changes are noted. No acute process seen. 2. Stable hepatic hemangioma.
== END | disposition home or self-care (01) ==
LOC: RADCTMAIN 10:17
PROVIDERS: ATTEND Surgery
DX: D18.03 Hemangioma of intra-abdominal structures (principal); Z90.49 Acquired absence of other specified parts of digestive tract
CPT/HCPCS: 74177; Q9967

== ENCOUNTER → 2020-11-01 | Outpatient (CLI) | payer BC ==
--- NOTE | 2020-11-03 11:12 | MM ---
Reason for exam: screening (asymptomatic). Last mammogram was performed 1 year and 1 month ago. History: Patient is postmenopausal. Family history of breast cancer in maternal grandmother. Took hormonal contraceptives for 20 years beginning at age 23. Taking estrogen for 7 years. Physical Findings: A clinical breast exam by your physician is recommended on an annual basis and results should be correlated with mammographic findings. MG Screening Mammo w CAD Bilateral CC and MLO view(s) were taken. Prior study comparison: September 20, 2019, bilateral MG screening mammo w CAD. September 17, 2018, bilateral MG screening mammo w CAD. The breast tissue is heterogeneously dense. This may lower the sensitivity of mammography. Areas of asymmetric densities area unchanged. No significant changes when compared with prior studies. ASSESSMENT: Benign, BI-RAD 2 RECOMMENDATION: Routine screening mammogram of both breasts in 1 year.
== END | disposition home or self-care (01) ==
LOC: RADMAMWWP 16:20
PROVIDERS: ATTEND Obstetrics & Gynecology
DX: Z12.31 Encounter for screening mammogram for malignant neoplasm of breast (principal)
CPT/HCPCS: 77067

== ENCOUNTER → 2021-11-14 | Outpatient (CLI) | payer BC ==
--- NOTE | 2021-11-15 10:58 | MM ---
Reason for exam: additional evaluation requested from abnormal screening. Last mammogram was performed less than 1 month ago. History: Patient is postmenopausal. Family history of breast cancer in maternal grandmother at age 80. Took hormonal contraceptives for 20 years beginning at age 23. Taking estrogen beginning at age 43. Physical Findings: A clinical breast exam by your physician is recommended on an annual basis and results should be correlated with mammographic findings. MG Work Up Mamm w CAD LT Spot compression CC and spot compression MLO view(s) were taken of the left breast. Prior study comparison: November 02, 2021, bilateral MG screening mammo w CAD. November 01, 2020, bilateral MG screening mammo w CAD. The breast tissue is heterogeneously dense. This may lower the sensitivity of mammography. Nodule corresponds to a skin lesion. These results were verbally communicated with the patient and result sheet given to the patient on 11/14/21. ASSESSMENT: Benign, BI-RAD 2 RECOMMENDATION: Return to routine screening mammogram schedule for both breasts.
== END | disposition home or self-care (01) ==
LOC: RADMAMWWP 15:09
PROVIDERS: ATTEND Obstetrics & Gynecology
DX: R92.8 Other abnormal and inconclusive findings on diagnostic imaging of breast (principal); Z80.3 Family history of malignant neoplasm of breast; Z78.0 Asymptomatic menopausal state
CPT/HCPCS: 77065

== ENCOUNTER → 2022-12-02 | Outpatient (CLI) | payer BC ==
--- NOTE | 2022-12-03 13:16 | BD ---
EXAMINATION TYPE: Axial Bone Density DATE OF EXAM: 12/02/2022 CLINICAL HISTORY: 57 years old Female. ICD-10 CODE: M85.88 Height: 5 ft 4 3/4 in Weight: 166 FRAX RISK QUESTIONS: Alcohol (3 or more units per day): no Family History (Parent hip fracture): yes Glucocorticoids (More than 3mos): no (Ex: prednisone, prednisolone, methylprednisolone, dexamethasone, and hydrocortisone). History of Fracture in Adulthood: no Secondary Osteoporosis: 1. Type 1 Diabetes: no 2. Hyperthyroidism: no 3. Menopause before 45: no 4. Malnutrition: no 5. Chronic liver disease: no Rheumatoid Arthritis: no Current Tobacco Use: no RISK FACTORS HISTORY OF: Surgery to Spine/Hip(right/left)/Wrist (right/left): no Family History of Osteoporosis: no Active: yes Diet low in dairy products/other sources of calcium: no Postmenopausal woman: yes Take estrogen and/or progesterone medications: yes How lon-15 years Lost more than 2 inches in height since high school: no Frequent falls: no Poor Health: good Hyperparathyroidism: no Adrenal Insufficiency: no MEDICATIONS: Additional Medications: hrt, Additional History: EXAM MEASUREMENTS: Bone mineral densitometry was performed using the Involver System. Bone mineral density as measured about the Lumbar spine is: ----- L1-L4(G/cm2): 1.110 T Score Values are as follows: ----- L1: -0.4 ----- L2: 0.1 ----- L3: -0.7 ----- L4: -1.3 ----- L1-L4: -0.6 Z Score Values are as follows: ----- L1: -0.4 ----- L2: 0.1 ----- L3: -0.7 ----- L4: -1.3 ----- L1-L4: -0.6 Bone mineral density has: decreased -1.0 % since study of: 2019 Bone mineral density about the R hip (g/cm2): 0.844 Bone mineral density about the L hip (g/cm2): 0.852 T Score values are as follows: -----R Neck: -1.4 -----L Neck: -1.3 -----R Total: -1.0 -----L Total: -0.7 Z Score values are as follows: -----R Neck: -0.4 -----L Neck: -0.4 -----R Total: -0.3 -----L Total: -0.1 Bone mineral density has: decreased -1.6 % since study of: 2019 FRAX%s: The graph provided illustrates a 14.9 % chance for a major osteoporotic fx and a 0.6 % chance for the hips probability for fx in 10 years time. IMPRESSION: Osteopenia (T Score between -2.5 and -1). There is slightly increased risk of fracture and the patient may be considered for treatment. Re-Screen 2-5 years. NOTE: T-SCORE=SD OF THE YOUNG ADULT MEAN.
--- NOTE | 2022-12-03 17:29 | MM ---
Reason for Exam: Screening (asymptomatic). Last mammogram was performed 1 year(s) and 1 month(s) ago. Patient History: Menarche at age 11. First Full-Term at age 22. Hysterectomy at age 43. Postmenopausal. Currently using Estrogen, starting at age 43. Hormonal Contraceptives for 20 years from age 23 until age 43. Maternal grandmother had breast cancer, age 80. Risk Values: Renea 5 year model risk: 1.2%. NCI Lifetime model risk: 6.7%. Prior Study Comparison: 11/01/2020 Bilateral Screening Mammogram, [facility]. 11/02/2021 Bilateral Screening Mammogram, [facility]. 11/14/2021 Left Diagnostic Mammogram, [facility]. Tissue Density: The breast tissue is heterogeneously dense. This may lower the sensitivity of mammography. Findings: Analyzed By CAD. Abdomen appears symmetrical and stable. No significant interval change. No suspicious groups of microcalcifications, spiculated or lobular masses, architectural distortion or other secondary signs of malignancy are mammographically apparent. Overall Assessment: Benign, BI-RAD 2 Management: Screening Mammogram of both breasts in 1 year. A negative mammogram report should not preclude additional follow up of suspicious palpable abnormalities. Patient should continue monthly self breast exam. A clinical breast exam by your physician is recommended on an annual basis and results should be correlated with mammographic findings. Electronically signed and approved by: Tawanda Holloway D.O. Radiologis
== END | disposition home or self-care (01) ==
LOC: RADMAMWWP 15:28
PROVIDERS: ATTEND Obstetrics & Gynecology
DX: Z12.31 Encounter for screening mammogram for malignant neoplasm of breast (principal); M85.89 Other specified disorders of bone density and structure, multiple sites; Z78.0 Asymptomatic menopausal state; Z80.3 Family history of malignant neoplasm of breast
CPT/HCPCS: 77063; 77067; 77080

== ENCOUNTER → 2023-12-04 | Outpatient (CLI) | payer BC ==
--- NOTE | 2023-12-05 15:19 | MM ---
Reason for Exam: Screening (asymptomatic). Last screening mammogram was performed 12 month(s) ago. Patient History: Menarche at age 11. First Full-Term at age 22. Hysterectomy at age 43. Postmenopausal. Currently using Estrogen, starting at age 43. Hormonal Contraceptives for 20 years from age 23 until age 43. Maternal grandmother had breast cancer, age 80. Risk Values: Renea 5 year model risk: 1.3%. NCI Lifetime model risk: 6.6%. Prior Study Comparison: 11/02/2021 Bilateral Screening Mammogram, [facility]. 11/14/2021 Left Diagnostic Mammogram, [facility]. 12/02/2022 Bilateral MG 3D screening mammo w/cad, [facility]. Tissue Density: The breasts are heterogeneously dense, which may obscure small masses. Findings: Analyzed By CAD. Right breast: There is no suspicious group of microcalcifications or new suspicious mass. Left breast: There is no suspicious group of microcalcifications or new suspicious mass. Overall Assessment: Negative, BI-RAD 1 Management: Screening Mammogram of both breasts in [address] [facility] will attempt to contact patient to return for supplemental views and ultrasound if indicated. Patient should continue monthly self-breast exams. A clinical breast exam by your physician is recommended on an annual basis. This exam should not preclude additional follow-up of suspicious palpable abnormalities. Note on Renea scores and lifetime risk: 1. A Renea score greater than 3% is considered moderate risk. If this is the case, consider specialist referral to assess eligibility for a risk reducing agent. 2. If overall lifetime risk for the development of breast cancer is 20% or higher, the patient may qualify for future screening with alternating mammogram and breast MRI. Electronically signed and approved by: Michael Gonzales DO
== END | disposition home or self-care (01) ==
LOC: RADMAMWWP 15:29
PROVIDERS: ATTEND Family Medicine
DX: Z12.31 Encounter for screening mammogram for malignant neoplasm of breast (principal); Z80.3 Family history of malignant neoplasm of breast; Z78.0 Asymptomatic menopausal state
CPT/HCPCS: 77063; 77067

== ENCOUNTER → 2024-12-15 | Outpatient (CLI) | payer BC ==
--- NOTE | 2024-12-16 07:25 | MM ---
Reason for Exam: Screening (asymptomatic). Last mammogram was performed 1 year(s) and 1 month(s) ago. Patient History: Menarche at age 11. First Full-Term at age 22. Hysterectomy at age 43. Postmenopausal. Currently using Estrogen, starting at age 43. Hormonal Contraceptives for 20 years from age 23 until age 43. Maternal grandmother had breast cancer, age 80. Risk Values: Renea 5 year model risk: 1.3%. NCI Lifetime model risk: 6.4%. Prior Study Comparison: 11/14/2021 Left Diagnostic Mammogram, [facility]. 12/02/2022 Bilateral MG 3D screening mammo w/cad, [facility]. 12/04/2023 Bilateral MG 3D screening mammo w/cad, [facility]. Tissue Density: The breasts are heterogeneously dense, which may obscure small masses. Findings: Analyzed By CAD. There is no suspicious group of microcalcifications or new suspicious mass in either breast. Overall Assessment: Negative, BI-RAD 1 Management: Screening Mammogram of both breasts in 1 year. . Patient should continue monthly self-breast exams. A clinical breast exam by your physician is recommended on an annual basis. This exam should not preclude additional follow-up of suspicious palpable abnormalities. Note on Renea scores and lifetime risk: 1. A Renea score greater than 3% is considered moderate risk. If this is the case, consider specialist referral to assess eligibility for a risk reducing agent. 2. If overall lifetime risk for the development of breast cancer is 20% or higher, the patient may qualify for future screening with alternating mammogram and breast MRI. [facility], , 12/16/2024 7:22 AM. Electronically signed and approved by: Cade Garcia M.D. Radiologis
== END | disposition home or self-care (01) ==
LOC: RADMAMWWP 15:57
PROVIDERS: ATTEND Family Medicine
DX: Z12.31 Encounter for screening mammogram for malignant neoplasm of breast (principal); R92.333 Mammographic heterogeneous density, bilateral breasts; Z78.0 Asymptomatic menopausal state; Z80.3 Family history of malignant neoplasm of breast; Z92.0 Personal history of contraception
CPT/HCPCS: 77063; 77067